=== PATIENT | male | born 1955 | race Caucasian/White ===

== ENCOUNTER → 2018-02-23 | Outpatient (CLI) | payer BC ==
[~2018-02-23] MED LIST: ALBUTEROL INHALER; LOR5 PO; PAN40 PO; PRE20 PO; PRO25 PO; TEST2.5G6 TD; reviewed
--- NOTE | 2018-02-23 14:04 | RADIOLOGY IMAGING REPORT ---
[place] [facility] [place] NAME: Doreen Mena : 1955 MR: [id number] V: [id number] EXAM DATE: ORDERING PHYSICIAN: CLARY BRIAN TECHNOLOGIST: Location[place] [facility] [place] Patient: Doreen Mena : 1955 Visit/Account:[id number] Date of Sevice: 02/23/2018 CHEST PA AND LAT INDICATION: Shortness of breath COMPARISON: None available FINDINGS: Heart size within normal limits. There is no focal infiltrate or lobar consolidation. There is no pneumothorax or pleural effusion. IMPRESSION: 1. No acute cardiopulmonary process. Report Dictated By: Manny Haq at 02/23/2018 1:59 PM Report E-Signed By: Manny Haq at 02/23/2018 2:00 PM WSN:[id number]
== END ==
LOC: RAD 12:27
PROVIDERS: ATTEND Family Medicine
DX: R06.00 Dyspnea, unspecified (principal)
CPT/HCPCS: 71046

== ENCOUNTER → 2018-03-20 | Outpatient (CLI) | payer BC ==
--- NOTE | 2018-03-21 08:46 | RT STRESS TEST REPORT ---
FACILITY: [facility] PATIENT NAME: CHACORTA HERNANDEZ : [id number] MR: [id number] V: [id number] EXAM DATE: ORDERING PHYSICIAN: CLARY BRIAN TECHNOLOGIST: Fausto Acquisition Time: 2018-03-20 13:24:12 Total Exercise Time: 00:07:48 Test Indications: Physical follow up Medications: Protocol: BRUCE2 Max HR: 169 BPM 106% of Pred: 159 BPM Max BP: 220/074 mmHG Max Work Load: 9.7 METS He had no chest pain or ST depression with the test. He had good heart rate recovery. His baseline ECG had inferior T wave inversion and lateral precordial T wave flattening. He had SBP up to 220 with peak exercise and his baseline SBP was 161. Low risk but baseline ECG abnormalities makes strict interpretation difficult. Confirmed by SUSHILA ROBLERO ([id number]) on 03/21/2018 8:46:15 AM Referred By: Overread By: SUSHILA ROBLERO
== END ==
LOC: RESP 13:06
PROVIDERS: ATTEND Family Medicine
DX: R94.31 Abnormal electrocardiogram [ECG] [EKG] (principal)
CPT/HCPCS: 93017